=== PATIENT | male | born 1975 | race Caucasian/White ===

== ENCOUNTER 2024-03-08 14:46 | Outpatient (AMB) | payer MEDICAID, SELFPAY ==
--- NOTE | 2024-03-08 15:03 | AM.OFFWIN_ITS ---
Intake Vital Signs 03/08/24 15:08 Height 6 ft 1 in Weight 277 lb BMI 36.5 BP 124/60 Blood Pressure Location Lt brachial Position Sitting Pulse 71 Pulse Source Pulse Oximeter Temp 97.9 F Temp Source Oral Pulse Oximetry (%) 96 Oxygen Delivery Method Room Air Intake Visit Reasons: [employer] swollen rt side neck Intake Note: Pt is here today c/o Rt side of neck pain Patient Tobacco Use Status: Current everyday Tobacco user Allergies No Known Allergies Allergy (Verified 03/08/24 15:48) HPI [employer] swollen rt side neck HPI Details 49 yr old male presents to the office fo r a sick visit. Patient is complaining of pain and discomfirt on the right side of the neck. Symptoms started a few days ago.. Pain on the right side of the neck, when the head is turned to the left side. Some difficulty swallowing. No fever or chills, PFSH Family History (Updated 03/08/24 @ 15:09 by Nighat Copeland [facility]) Maternal Grandmother Substance use disorder Social History Patient Tobacco Use Status: Current everyday Tobacco user Physical Exam Vital Signs: Last Vital Signs Temp 97.9 F 03/08/24 15:08 Pulse 71 03/08/24 15:08 BP 124/60 03/08/24 15:08 Pulse Ox 96 03/08/24 15:08 Oxygen Delivery Method Room Air 03/08/24 15:08 BMI result Body Mass Index 36.5 Const General: cooperative and healthy appearing Nutritional Appearance: well nourished Orientation/consciousness: patient oriented x3 Limitations: no limitations HEENT Head: Yes normal to inspection Eyes General: appearance normal, both eyes and all related structures Neck Other: Submandibular swelling, indistinct border, 3 cm in size, tender to touch. Neck: Yes normal visual inspection Chest Chest palpation & inspection: normal palpation of entire chest wall Resp Effort & Inspection: normal respiratory effort Neuro General: patient oriented x3 Assessment & Plan Assessment & Plan (1) Swollen neck: Code(s): R22.1 - Localized swelling, mass and lump, neck Plan: Swelling could represent a blocked parotid gland or a lymph node. Will treat with antibiotics and meloxicam. if sx worsen to follow up here. Medications: New cephalexin 500 mg PO BID 14 caps 0RF meloxicam 15 mg PO DAILY 14 tabs 0RF Coding Level of Care Code New Pt Level 4 (85058) Diagnoses Swollen neck R22.1
[2024-03-08 15:08] VITALS: BP 124/60; PULSE 71; TEMP 36.6; O2SAT 96; BMI 36.5
== END 2024-03-08 16:20 | disposition home or self-care (01) ==
PROVIDERS: Visit Provider Internal Medicine
DX: R22.1 Localized swelling, mass and lump, neck (principal)
CPT/HCPCS: 99204